=== PATIENT | female | born 1970 | race Caucasian/White ===

== ENCOUNTER → 2017-05-10 | Outpatient (CLI) | payer OTHER ==
[~2017-05-10] VITALS: Ht 152.4 cm; Wt 93.0 kg
[~2017-05-10] MED LIST: DICLOFENAC SODI75 MG PO; FIORICET 50-301 EACH; FIORICET PO; FLONASE16 GM NASAL; GILTUSS TR PO; ORPH100T PO; ZITHROMAX500 MG PO; ZYRTEC10 MG PO
== END | disposition home or self-care (01) ==
LOC: PPHC 12:00
DX: R53.1 Weakness (principal); R50.9 Fever, unspecified; R51 Headache; R19.7 Diarrhea, unspecified; R09.81 Nasal congestion

== ENCOUNTER 2017-05-13 13:13 | Outpatient (CLI) | payer OTHER | END 2017-05-13 13:15 | disposition home or self-care (01) | LOC: MAMO-SONO 13:13 | DX: Z12.31 Encounter for screening mammogram for malignant neoplasm of breast (principal); N60.01 Solitary cyst of right breast ==

== ENCOUNTER 2017-06-07 07:10 | Outpatient (CLI) | payer OTHER | END 2017-06-07 07:18 | disposition home or self-care (01) | LOC: LAB 07:10 | DX: D64.89 Other specified anemias (principal); N39.0 Urinary tract infection, site not specified; E03.8 Other specified hypothyroidism; E78.00 Pure hypercholesterolemia, unspecified; R82.79 Other abnormal findings on microbiological examination of urine ==

== ENCOUNTER 2018-05-09 11:34 | Outpatient (CLI) | payer OTHER | END 2018-05-09 13:29 | disposition home or self-care (01) | LOC: SONOGRAMA 11:34 | DX: N60.19 Diffuse cystic mastopathy of unspecified breast (principal); Z12.31 Encounter for screening mammogram for malignant neoplasm of breast ==

== ENCOUNTER 2018-06-03 11:07 | Outpatient (CLI) | payer OTHER | END 2018-06-03 11:12 | disposition home or self-care (01) | LOC: LAB 11:07 | DX: E55.9 Vitamin D deficiency, unspecified (principal); E78.2 Mixed hyperlipidemia; E03.8 Other specified hypothyroidism; Z11.3 Encounter for screening for infections with a predominantly sexual mode of transmission; Z13.1 Encounter for screening for diabetes mellitus; Z12.11 Encounter for screening for malignant neoplasm of colon; Z11.4 Encounter for screening for human immunodeficiency virus [HIV] ==

== ENCOUNTER 2018-06-16 15:12 | Outpatient (CLI) | payer OTHER | END 2018-06-17 16:36 | disposition home or self-care (01) | LOC: LAB 15:12 | DX: J11.1 Influenza due to unidentified influenza virus with other respiratory manifestations (principal); J20.0 Acute bronchitis due to Mycoplasma pneumoniae ==

== ENCOUNTER 2018-08-30 09:14 | Outpatient (CLI) | payer OTHER | END 2018-08-30 09:20 | disposition home or self-care (01) | LOC: LAB 09:14 | DX: E55.9 Vitamin D deficiency, unspecified (principal); R79.0 Abnormal level of blood mineral; R63.4 Abnormal weight loss; K73.8 Other chronic hepatitis, not elsewhere classified; Z32.00 Encounter for pregnancy test, result unknown; J34.89 Other specified disorders of nose and nasal sinuses; D52.0 Dietary folate deficiency anemia; E78.00 Pure hypercholesterolemia, unspecified; R05 Cough; J15.0 Pneumonia due to Klebsiella pneumoniae; R94.31 Abnormal electrocardiogram [ECG] [EKG] ==

== ENCOUNTER → 2019-06-02 10:14 | Outpatient (CLI) | payer OTHER | END | disposition home or self-care (01) | LOC: LAB 10:14 | DX: J11.1 Influenza due to unidentified influenza virus with other respiratory manifestations (principal) ==

== ENCOUNTER 2019-06-26 13:46 | Outpatient (CLI) | payer OTHER | END 2019-06-26 13:48 | disposition home or self-care (01) | LOC: MAMO-SONO 13:46 | DX: Z12.31 Encounter for screening mammogram for malignant neoplasm of breast (principal); Z87.898 Personal history of other specified conditions ==

== ENCOUNTER → 2019-12-15 | Outpatient (CLI) | payer OTHER | END | disposition home or self-care (01) | LOC: PPH VACUNA 15:59 → LAB 15:59 | DX: Z23 Encounter for immunization (principal) ==

== ENCOUNTER 2020-12-08 10:46 | Outpatient (CLI) | payer OTHER | END 2020-12-08 10:58 | disposition home or self-care (01) | LOC: MAMO-SONO 10:46 | PROVIDERS: ATTEND Obstetrics & Gynecology | DX: N60.11 Diffuse cystic mastopathy of right breast (principal); N60.12 Diffuse cystic mastopathy of left breast; Z12.31 Encounter for screening mammogram for malignant neoplasm of breast ==

== ENCOUNTER → 2020-12-12 08:32 | Outpatient (CLI) | payer OTHER | END | disposition home or self-care (01) | LOC: LAB 08:32 | PROVIDERS: ATTEND Internal Medicine Cardiovascular Disease | DX: E03.8 Other specified hypothyroidism (principal); I11.9 Hypertensive heart disease without heart failure; N39.0 Urinary tract infection, site not specified; E78.2 Mixed hyperlipidemia ==

== ENCOUNTER 2020-12-21 08:00 | Outpatient (CLI) | payer OTHER | END 2020-12-21 08:30 | disposition home or self-care (01) | LOC: PPH VACUNA 08:00 | PROVIDERS: ATTEND Emergency Medicine Pediatric Emergency Medicine | DX: Z23 Encounter for immunization (principal) ==

== ENCOUNTER 2021-04-07 13:47 | Outpatient (CLI) | payer OTHER | END 2021-04-07 15:00 | disposition home or self-care (01) | LOC: LAB 13:47 | DX: U07.1 COVID-19 (principal) ==

== ENCOUNTER 2021-08-15 10:07 | Outpatient (CLI) | payer OTHER | END 2021-08-15 10:13 | disposition home or self-care (01) | LOC: MAMO-SONO 10:07 | PROVIDERS: ATTEND Obstetrics & Gynecology | DX: N60.09 Solitary cyst of unspecified breast (principal) ==

== ENCOUNTER → 2021-12-13 | Outpatient (CLI) | payer OTHER | END | disposition home or self-care (01) | LOC: PPH VACUNA 08:00 | PROVIDERS: ATTEND Emergency Medicine Pediatric Emergency Medicine | DX: Z23 Encounter for immunization (principal) ==

== ENCOUNTER 2023-01-29 01:30 | Outpatient (CLI) | payer OTHER | END 2023-01-29 01:40 | disposition home or self-care (01) | LOC: PPH VACUNA 01:30 | PROVIDERS: ATTEND Emergency Medicine Pediatric Emergency Medicine | DX: Z23 Encounter for immunization (principal) | CPT/HCPCS: 90686; G0008 ==

== ENCOUNTER 2023-04-15 07:59 | Emergency (ER) | payer OTHER ==
[~2023-04-15] VITALS: Ht 162.6 cm; Wt 94.3 kg
[2023-04-15 09:03] LABS: HEMATOCRIT 42.5 % (36.0-45.00); HEMOGLOBIN 14.4 g/dL (12.0-15.00); MEAN CELL VOLUME 85.3 fL (80.00-100.00); MEAN CORPUSCULAR HEMOGLOBIN 28.8 pg (27.00-32.0); MEAN CORPUSCULAR HGB CONC 33.8 g/dl (32.0-36.0); PLATELET COUNT 178 K/uL (150-450); RED BLOOD COUNT 4.99 M/uL (4.00-6.00); RED CELL DISTRIBUTION WIDTH 13.5 % (11.5-14.5)
[2023-04-15 09:05] LABS: URINE APPEARANCE Turbid; URINE BILIRRUBIN Negative (NEGATIVE); URINE BLOOD Negative; URINE COLOR Dark Yellow; URINE GLUCOSE Negative (NEGATIVE); URINE LEUKOCYTE Small; URINE NITRATE Negative; URINE PROTEIN 30 (NEGATIVE)
[2023-04-15 09:06] LABS: URINE RBC 8.3 uL (0.0-20.8); URINE WBC 414.8 uL (0.0-23.2)
[2023-04-15 09:51] LABS: URINE BACTERIA > 9821.5 uL (0.0-1933); URINE EPITHELIAL CELLS > 201.7 uL (0.0-38.8)
[2023-04-15 09:52] LABS: URINE CRYSTALS FEW /HPF
[2023-04-15 10:10] LABS: ALBUMIN 3.6 gm/dL (3.4-5.0); BILIRUBIN TOTAL 1.37 mg/dL (0.3-1.2); CALCIUM 9.5 mg/dL (8.5-10.1); CREATININE SERUM 0.8 mg/dL (0.55-1.02); GFR 75.92; GLOBULINA 4.4 G/DL (2.4-3.5); POTASSIUM 3.9 mEq/L (3.5-5.1)
[2023-04-15] MEDS ORDERED: METRONIDAZOLE500 MG PO (10:25)
[2023-04-15] MEDS ORDERED: CIPRO500 MG PO (10:25)
[2023-04-15] MEDS ORDERED: PEPCID AC20 MG PO (10:25)
[2023-04-15] MEDS ORDERED: LEVSIN/SL0.125 MG SL (10:25)
== END 2023-04-15 11:26 | disposition home or self-care (01) ==
LOC: ER 08:00
PROVIDERS: General Practice
DX: K57.32 Diverticulitis of large intestine without perforation or abscess without bleeding (principal); R10.9 Unspecified abdominal pain

== ENCOUNTER 2023-11-27 09:30 | Outpatient (CLI) | payer OTHER ==
[~2023-11-27 09:30] MED LIST changes: +CIPRO500 MG PO; +LEVSIN/SL0.125 MG SL; +METRONIDAZOLE500 MG PO; +PEPCID AC20 MG PO
== END 2023-11-27 14:20 | disposition home or self-care (01) ==
LOC: LAB 09:30
PROVIDERS: ATTEND Preventive Medicine Occupational Medicine
DX: B19.10 Unspecified viral hepatitis B without hepatic coma (principal)

== ENCOUNTER 2024-01-13 02:40 | Outpatient (CLI) | payer OTHER | END 2024-01-13 03:00 | disposition home or self-care (01) | LOC: PPH VACUNA 02:40 | PROVIDERS: ATTEND Emergency Medicine Pediatric Emergency Medicine | DX: Z23 Encounter for immunization (principal) ==

== ENCOUNTER 2024-08-04 11:25 | Outpatient (CLI) | payer OTHER ==
[2024-08-06 05:07] LABS: HEPATITIS B CORE IGG Negative (Negative); HEPATITIS B CORE IGM Negative (Negative); HEPATITIS B SURFACE ANTIBODY Reactive (.); HEPATITIS C VIRUS ANTIBODY Non Reactive (Non Reactive)
== END 2024-08-04 11:26 | disposition home or self-care (01) ==
LOC: LAB 11:25
DX: A64 Unspecified sexually transmitted disease (principal); B19.9 Unspecified viral hepatitis without hepatic coma

== ENCOUNTER 2024-09-11 09:17 | Outpatient (CLI) | payer OTHER ==
[2024-09-12 09:08] LABS: LEUTEINIZING HORMONE 51.2 mIU/mL (.); PROGESTERONA < 0.1 ng/mL (.)
== END 2024-09-11 09:28 | disposition home or self-care (01) ==
LOC: LAB 09:17
PROVIDERS: ATTEND Obstetrics & Gynecology
DX: N97.0 Female infertility associated with anovulation (principal); E28.319 Asymptomatic premature menopause

== ENCOUNTER 2024-11-19 07:19 | Outpatient (CLI) | payer OTHER ==
[2024-11-19 07:41] LABS: BASO % 0.8 % (0.1-1.2); EOS # 0.12 (0.04-0.54); EOS % 3.4 % (0.7-7.0); LYMPH # 1.27 (1.18-3.74); LYMPH % 36.0 % (19.3-53.1); MEAN PLATELET VOLUME 11.10 fl (9.4-12.4); MONO # 0.25 (0.24-0.82); MONO % 7.1 % (4.7-12.5); NEUT # 1.85 (1.56-6.13); NEUT % 52.4 % (34.0-71.1); RED CELL DISTRIBUTION WIDTH 12.8 % (11.6-14.4)
[2024-11-19 08:24] LABS: ALT/SGPT 28.0 U/L (12-78); AST/SGOT 17.0 U/L (15-37); BILIRUBIN TOTAL 0.41 mg/dL (0.3-1.2); BUN CREA RATIO 13.0 (7.0-25.0); CHOL HDL RATIO 2.8 (0-5.0); CREATININE SERUM 0.71 mg/dL (0.55-1.02); GFR 86.44; GLOBULINA 3.9 G/DL (2.4-3.5); GLUCOSE FASTING 100.0 mg/dL (65-100); HDL 63.0 mg/dl (40-60); LDL 98.0 mg/dl (0-130); OSMOLALITY SERUM 284.0 MOSM/KG (275-295); TSH 0.822 uIU/mL (0.358-3.74); VLDL 15.0 (0-39)
[2024-11-19 09:20] LABS: URINE APPEARANCE Clear; URINE BILIRRUBIN Negative (NEGATIVE); URINE BLOOD Negative; URINE COLOR Dark Yellow; URINE GLUCOSE Negative (NEGATIVE); URINE KETONE Trace (NEGATIVE); URINE LEUKOCYTE Negative; URINE NITRATE Negative; URINE PROTEIN Negative (NEGATIVE); URINE UROBILINOGEN 1.0 E.U./dl
[2024-11-19 09:23] LABS: URINE BACTERIA 713.9 uL (0.0-1933); URINE EPITHELIAL CELLS 35.6 uL (0.0-38.8); URINE RBC 9.8 uL (0.0-20.8); URINE WBC 10.1 uL (0.0-23.2)
[2024-11-19 09:40] LABS: URINE CAST 0.14 uL (0.0-1.40)
== END 2024-11-19 13:52 | disposition home or self-care (01) ==
LOC: LAB 07:19
PROVIDERS: ATTEND Obstetrics & Gynecology
DX: D64.9 Anemia, unspecified (principal); N39.0 Urinary tract infection, site not specified; N92.1 Excessive and frequent menstruation with irregular cycle; E78.00 Pure hypercholesterolemia, unspecified; E13.9 Other specified diabetes mellitus without complications; E03.9 Hypothyroidism, unspecified

== ENCOUNTER 2024-11-25 14:04 | Outpatient (CLI) | payer OTHER | END 2024-11-25 14:09 | disposition home or self-care (01) | LOC: MAMO-SONO 14:04 | PROVIDERS: ATTEND Obstetrics & Gynecology | DX: N60.09 Solitary cyst of unspecified breast (principal) ==

== ENCOUNTER 2025-01-06 10:02 | Outpatient (CLI) | payer OTHER | END 2025-01-06 10:12 | disposition home or self-care (01) | LOC: PPH VACUNA 10:02 | PROVIDERS: ATTEND Emergency Medicine Pediatric Emergency Medicine | DX: Z23 Encounter for immunization (principal) ==

== ENCOUNTER 2025-02-19 11:30 | Emergency (ER) | payer OTHER ==
[~2025-02-19] VITALS: Ht 162.6 cm; Wt 95.3 kg
[2025-02-19] MEDS ORDERED: IBU600 MG PO (14:54)
[2025-02-19] MEDS ORDERED: SILVADENE20 GM TOP (15:00)
== END 2025-02-19 15:08 | disposition home or self-care (01) ==
LOC: ER 11:31
DX: S93.692A Other sprain of left foot, initial encounter (principal); W18.39XA Other fall on same level, initial encounter; Y93.89 Activity, other specified; Y92.89 Other specified places as the place of occurrence of the external cause; Y99.9 Unspecified external cause status